=== PATIENT | male | born 1995 | race Hispanic/Latino ===

== ENCOUNTER 2018-07-13 13:58 | Emergency (ER) | payer SELFPAY ==
[2018-07-13] MEDS ORDERED: Adacel (T-DAP) 0.5 ML VIAL ONE (14:50)
[2018-07-13] MEDS ORDERED: Bacitracin Zinc 1 Packet ONE ×2 (15:38→17:10)
[2018-07-13] MEDS ORDERED: Proparacaine 0.5% Opth 15 ML BOT ONE (15:38)
[2018-07-13] MEDS ORDERED: Fluorescein Opthalmic Strip ONE (15:38)
--- NOTE | 2018-07-13 15:56 | CT ---
BRAIN CT WITHOUT IV CONTRAST: 07/13/18 HISTORY: 23-year-old male with history of fall six feet at work. Hit head. Laceration posterior head. There is some minimal motion artifact minimally degrading imaging quality. No focal mass or midline s hift. No intra or extra-axial hemorrhage. Soft tissue injury and swelling noted over the parietal reg ion posteriorly. IMPRESSION: Right posterior parietal scalp injury. No mass, bleed or other significant acute intracranial process . POS: OFF
[2018-07-13] MEDS ORDERED: Erythromycin Base 0.5% Oint 1 GM TUBE ONE ×2 (17:10→17:39)
== END 2018-07-13 18:12 | disposition home or self-care (01) ==
LOC: ERS 13:58
DX: S06.9X1A Unspecified intracranial injury with loss of consciousness of 30 minutes or less, initial encounter (principal); S01.01XA Laceration without foreign body of scalp, initial encounter; H10.213 Acute toxic conjunctivitis, bilateral; F17.210 Nicotine dependence, cigarettes, uncomplicated; S20.419A Abrasion of unspecified back wall of thorax, initial encounter; S40.219A Abrasion of unspecified shoulder, initial encounter; W17.89XA Other fall from one level to another, initial encounter
CPT/HCPCS: 12004; 70450; 90471; 90715